=== PATIENT | male | born 1975 ===

== ENCOUNTER 2020-05-03 02:28 | Emergency (ER) | payer SELFPAY ==
[~2020-05-03] VITALS: Ht 180.3 cm; Wt 58.0 kg
[2020-05-03 05:48] VITALS: BP 131/85
== END 2020-05-03 06:23 | disposition home or self-care (01) ==
LOC: ER 02:28
DX: R50.9 Fever, unspecified (principal); B34.9 Viral infection, unspecified; F17.200 Nicotine dependence, unspecified, uncomplicated; F12.10 Cannabis abuse, uncomplicated
CPT/HCPCS: 93005; 99283